=== PATIENT | female | born 1970 | race Caucasian/White ===

== ENCOUNTER → 2017-12-06 | Outpatient (CLI) | payer OTHER ==
[2017-12-08 14:06] LABS: Stool Occult Bld Immuno 1 Negative (NEGATIVE); Stool Occult Bld Immuno 2 Negative (NEGATIVE)
== END | disposition home or self-care (01) ==
LOC: LAB 08:00 → LAB SHORT 08:00
PROVIDERS: Internal Medicine
DX: Z12.11 Encounter for screening for malignant neoplasm of colon (principal); R31.29 Other microscopic hematuria; R74.0 Nonspecific elevation of levels of transaminase and lactic acid dehydrogenase [LDH]; R80.9 Proteinuria, unspecified
CPT/HCPCS: 82274

== ENCOUNTER 2018-12-06 08:49 | Day surgery (SDC) | payer OTHER ==
[~2018-12-06] VITALS: Ht 170.2 cm; Wt 98.9 kg
[~2018-12-06 08:49] MED LIST: B Complex #11 EACH; GABA300; GLIM4; HUMIRA PEN40 MG/0.4
--- NOTE | 2018-12-06 10:29 | NUR ---
12/06/18 1028 Brigitte Phelan TIME OUT AND SITE CHECK DONE WITH DR CONKLIN AT 1013. INJECTION DONE BY DR CONKLIN AT 1020.
[2018-12-06] MEDS ORDERED: LOSA25 (10:35)
== END 2018-12-06 11:30 | disposition home or self-care (01) ==
LOC: ORSCSDS 08:49
PROVIDERS: Orthopaedic Surgery
PROC: 01N54ZZ Release Median Nerve, Percutaneous Endoscopic Approach (ICD-10-PCS; principal; 2018-12-06 10:00)
DX: G56.01 Carpal tunnel syndrome, right upper limb (principal); I10 Essential (primary) hypertension; E11.9 Type 2 diabetes mellitus without complications; Z79.899 Other long term (current) drug therapy; E66.9 Obesity, unspecified; Z68.34 Body mass index [BMI] 34.0-34.9, adult
CPT/HCPCS: 82947; J0171; J0690; J2250; J7120

== ENCOUNTER → 2018-12-17 | Outpatient (CLI) | payer OTHER ==
[~2018-12-17] MED LIST changes: +LOSA25
[2018-12-19 15:07] LABS: HPV 16 Negative (Negative); HPV 18 Negative (Negative); HPV OTHER HR TYPES Negative (Negative)
== END | disposition home or self-care (01) ==
LOC: LAB SHORT 17:28 → LAB 17:28
PROVIDERS: Nurse Practitioner Women's Health
DX: Z12.72 Encounter for screening for malignant neoplasm of vagina (principal)
CPT/HCPCS: 87624; G0123